=== PATIENT | female | born 1970 | race Two or more races ===

== ENCOUNTER 2024-08-05 12:19 | Emergency (ER) | payer MEDICAID, OTHER ==
[~2024-08-05] VITALS: Ht 346.2 cm; Wt 98.2 kg
--- NOTE | 2024-08-05 13:27 | DVH ---
INDICATION: NECK PAIN, NO INJURY COMPARISON: None TECHNIQUE: 3 views of the cervical spine were obtained. FINDINGS: Cervical spinal hardware is visualized at C5-C6. The predental space is normal. The intervertebral disc spaces are well-maintained. No significant facet arthropathy is noted. No acute fracture, vertebral compression deformity or aggressive osseous lesions. The imaged lung apices are unremarkable. IMPRESSION: No acute fracture.
--- NOTE | 2024-08-05 13:46 | ED.PDOC ---
Back pain HPI HPI Comments A 54 YEAR OLD FEMALE PRESENTS TO THE ED WITH COMPLAINT OF NECK PAIN. 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 PATIENT NOTES HAS A HISTORY OF CHRONIC NECK PAIN AND NECK SURGERY IN THE PAST. PATIENT DENIES NECK INJURY, FEVER, CHILLS, SHORTNESS OF BREATH, CHEST PAIN, ABDOMINAL PAIN, NAUSEA, VOMITING, HEADACHE, OR OTHER COMPLAINTS. NO OTHER SYMPTOMS OR MODIFYING FACTORS AT THIS TIME. PATIENT IS ALERT, ORIENTED X 4, AND HAS STEADY GAIT. Chief Complaint: Neck Pain Time Seen by MD: 12:25 Reviewed Notes: Nurses Notes, Medications, Allergies Allergies: Coded Allergies: NO KNOWN ALLERGIES (Unverified , 08/05/24) Home Meds Active Scripts Tramadol HCl (Tramadol HCl) 50 Mg Tab, 50 MG PO BID, #20 TAB Prov:BERNADETTE ACOSTA 08/05/24 Information Source: Patient Mode of Arrival: Ambulatory Timing: Days Duration: Since onset, Days Location of Back pain: (B) Cervical Severity: Moderate Prehospital treatment: None Quality: Aching, Cramping Onset: Bending History of: None (CHRONIC NECK PAIN) Modifying Factors: Movement Associated signs and symptoms: None Past Medical History Past Medical History (Other): CHRONIC NECK PAIN Surgical History (Other): NECK SURGERY SQUILGEER History: No Pertinent SQUILGEER History Family History Family History: Reviewed,noncontributory to illness Social History Smoker: Non-Smoker Alcohol: Denies ETOH Use Drugs: Denies Drug Use Lives In: Home Constitutional: denies: chills, diaphoresis, fatigue, fever, malaise, sweats, weakness, others EENTM: denies: blurred vision, double vision, ear bleeding, ear discharge, ear drainage, ear pain, ear ringing, eye pain, eye redness, hearing loss, mouth pain, mouth swelling, nasal discharge, nose bleeding, nose congestion, nose pain, photophobia, tearing, throat pain, throat swelling, voice changes, others Respiratory: denies: cough, hemoptysis, orthopnea, SOB at rest, shortness of breath, SOB with excertion, stridor, wheezing, others Cardiovascular: denies: chest pain, dizzy spells, diaphoresis, Dyspnea on exertion, edema, irregular heart beat, left arm pain, lightheadedness, palpitations, PND, syncope, others Gastrointestinal: denies: abdomen distended, abdominal pain, blood streaked bowels, constipated, diarrhea, dysphagia, difficulty swallowing, hematemesis, melena, nausea, poor appetite, poor fluid intake, rectal bleeding, rectal pain, vomiting, others Genitourinary: denies: abnormal vagina bleeding, burning, dyspareunia, dysuria, flank pain, frequency, hematuria, incontinence, pain, , vagina discharge , urgency, others Neurological: denies: dizziness, fainting, headache, left sided numbness, left sided weakness, numbness, paresthesia, pre-existing deficit, right sided numbness, right sided weakness, seizure, speech problems, tingling, tremors, weakness, others Musculoskeletal: reports: muscle pain, neck pain; denies: back pain, gout, joint pain, joint swelling, muscle stiffness, others Integumetry: denies: bruises, change in color, change in hair/nails, dryness, laceration, lesions, lumps, rash, wounds, others Allergic/Immunocompromised: denies: Difficulty Healing, Frequent Infections, Hives, Itching, others Hematologic/Lymphatic: denies: anemia, blood clots, easy bleeding, easy bruising, swollen glands, others Endocrine: denies: excessive hunger, excessive sweating, excessive thirst, excessive urination, flushing, intolerance to cold, intolerance to heat, unexplained weight gain, unexplained weight loss, others Psychiatric: denies: anxiety, bipolar disorder, depression, hopeless, panic disorder, schizophrenia, sleepless, suicidal, others All Other Systems: Reviewed and Negative Physical Exam General Appearance: No Apparent Distress, Normal HEENT: Normal ENT Inspection, PERRL/EOMI, Pharynx Normal, TMs Normal Neck: Full Range of Motion, Normal Inspection, Supple, Tender Lateral (MUSCLE SPASM ON POSTERIOR NECK, NO BONY TENDERNESS, SWELLING AND DEFORMITY. ) Respiratory: Chest Non-Tender, Lungs Clear, No Accessory Muscle Use, No Respiratory Distress, Normal Breath Sounds Cardiovascular: No Edema, No JVD, No Murmur, No Gallop, Normal Peripheral Pulses, Regular Rate/Rhythm Breast Exam: Deferred Gastrointestinal: No Organomegaly, Non Tender, No Pulsatile Mass, Normal Bowel Sounds, Soft Genitalia: Deferred Pelvic: Deferred Rectal: Deferred Extremities: No calf tenderness, Normal capillary refill, Normal inspection, Normal range of motion, Non-tender, No pedal edema Musculoskeletal : Apperance: Normal Neurologic: Alert, western felt hat blocker II-XII nml as Tested, No Motor Deficits, Normal Affect, Normal Mood, No Sensory Deficits Cerebellar Function: Normal Reflexes: Normal Skin: Dry, Normal Color, Warm Peripheral Pulses: 2+ carotid (R), 2+ carotid (L) Lymphatic: No Adenopathy Was a procedure done? Was a procedure done?: No Back Pain Differential Dx Differential Diagnosis: DJD, Fracture, Musculoskeletal Pain, Strain X-Ray, Labs, Meds, VS Vital Signs Date Time Temp Pulse Resp B/P (MAP) Pulse Ox O2 Delivery O2 Flow Rate FiO2 08/05/24 14:02 98.2 82 18 162/76 (104) 95 98.2 08/05/24 14:02 82 18 95 Room Air 08/05/24 14:01 98.2 82 18 162/76 (104) 95 08/05/24 12:46 78 Lab Test 08/05/24 12:41 Range/Units POC Glucose 159 H 70-106 mg/dl Current Medications Medications (Trade) Dose Ordered Sig/Brisa Route Start Time Stop Time Status Last Admin Ketorolac Tromethamine (Toradol Injection) 60 mg ONCE ONCE IM 08/05/24 13:45 08/05/24 13:46 DC 08/05/24 14:04 INDICATION: NECK PAIN, NO INJURY COMPARISON: None TECHNIQUE: 3 views of the cervical spine were obtained. FINDINGS: Cervical spinal hardware is visualized at C5-C6. The predental space is normal. The intervertebral disc spaces are well-maintained. No significant facet arthropathy is noted. No acute fracture, vertebral compression deformity or aggressive osseous lesions. The imaged lung apices are unremarkable. IMPRESSION: No acute fracture. ATED BY: MINNA MORALES MD DICTATED DATE/TIME: 08/05/241325 SIGNED BY: MINNA MORALES MD SIGNED DATE/TIME: 08/05/241325 CC: X-Ray, Labs, Meds, VS Comment EXTERNAL MEDICAL RECORDS REVIEWED: [NONE] INDEPENDENT HISTORIANS: [NONE] SOCIAL DETERMINANTS OF HEALTH: [NONE] LABS ORDERED: NONE REVIEWED AND INTERPRETED RESULTS: NONE IMAGING ORDERED: XR C-SPINE TREATMENTS ORDERED: TORADOL 60 MG IM PROCEDURES PERFORMED: NONE CRITICAL CARE TIME: NONE I HAVE DISCUSSED THE PATIENT WITH THE ATTENDING PHYSICIAN DR. HUGHES AND HE AGREES WITH THE PATIENT'S PLAN OF CARE AND DISPOSITION. BASED ON HISTORY OF PRESENT ILLNESS, AND PHYSICAL EXAM, PATIENT WILL BE DISCHARGED HOME. SHARED DECISION MAKING: PATIENT INSTRUCTED TO FOLLOW UP WITH PRIMARY CARE PROVIDER IN 1-2 DAYS FOR RE-EVALUATION OF SYMPTOMS. PATIENT VERBALIZES UNDERSTANDING TO RETURN TO ED FOR NEW OR WORSENING SYMPTOMS OR IF FOLLOW UP WITH PCP CANNOT BE OBTAINED. PATIENT FEELS COMFORTABLE GOING HOME AT THIS TIME. ALL QUESTIONS ADDRESSED AT TIME OF DISCHARGE. Images Reviewed?: Images reviewed and evaluated by me Time of 1ST Reevaluation: 14:20 Reevaluation 1ST: Improved Patient Education/Counseling: Diagnosis, Treatment, Need For Follow Up Family Education/Counseling: Diagnosis, Treatment, Need For Follow Up Medical Screening: No EMC Exist At This Time Departure 1 Departure Time of Disposition: 14:20 Impression: Primary Impression: Cervical muscle strain Qualified Codes: S16.1XXA - Strain of muscle, fascia and tendon at neck level, initial encounter Additional Impression: Chronic neck pain Disposition: 01 HOME / SELF CARE / HOMELESS Condition: Stable Additional Instructions: FOLLOW-UP WITH PCP IN 1 TO 2 DAYS. TAKE MEDICATIONS PRESCRIBED. RETURN TO ED FOR ANY NEW OR WORSENING SYMPTOMS. e-Prescriptions Tramadol HCl (Tramadol HCl) 50 Mg Tab 50 MG PO BID, #20 TAB Prov: BERNADETTE ACOSTA 08/05/24 Discharged With: Self, Relative Critical Care Note Critical Care Time?: No Stability Stability form required: No I personally scribed for BERNADETTE ACOSTA ([email or web address]) on 08/05/24 at 13:45. Electronically submitted by Deep Alvarado ([email or web address] I personally scribed for BERNADETTE ACOSTA ([email or web address]) on 08/05/24 at 14:14. Electronically submitted by Deep Alvarado ([email or web address]). BERNADETTE ACOSTA Aug 05, 2024 13:45
[2024-08-05 14:02] VITALS: BP 162/76; PULSE 82; RESP 18; TEMP 98.2; O2SAT 95
[2024-08-05] MEDS: KETOROLAC TROMETH 60MG/2ML VIAL IM ONE (14:04)
[2024-08-05] MEDS ORDERED: TRAM-626 PO (14:16)
--- NOTE | 2024-08-11 07:11 | ECG ---
[facility] Test Date: 2024-08-05 Test Time: 12:46:13 Pat Name: REMEDIOS HUTCHINSON Department: ER Room: Gender: F [employer] Design Engineer: EBONIE : [id number] Requested By: BERNADETTE ACOSTA Order Number: [id number] Reading MD: Timothy Kapoor Measurements Intervals [place] Rate: 78 P: 68 MS: 145 QRS: 100 QRSD: 144 T: -1 QT: 415 QTc: 473 Interpretive Statements Sinus rhythm RBBB and LPFB Electronically Signed On 08-11-2024 9:34:59 PST by Timothy Kapoor Please click the below link to view image of tracing.
== END 2024-08-05 14:23 | disposition home or self-care (01) ==
LOC: ER 12:19
DX: S16.1XXA Strain of muscle, fascia and tendon at neck level, initial encounter (principal); G89.29 Other chronic pain; M54.2 Cervicalgia; Z98.890 Other specified postprocedural states; Z79.899 Other long term (current) drug therapy; X58.XXXA Exposure to other specified factors, initial encounter; Y93.89 Activity, other specified; Y92.89 Other specified places as the place of occurrence of the external cause; Y99.8 Other external cause status
CPT/HCPCS: 72040; 82947; 93005; 96372; 99283; J1885; 82962